=== PATIENT | female | born 1990 | race Hispanic/Latino ===

== ENCOUNTER 2017-07-04 06:21 | Emergency (ER) | payer OTHER ==
[2017-07-04 06:32] VITALS: TEMP 98.1
[2017-07-04] MEDS ORDERED: Sodium Chloride 0.9% 1,000 ML IV STA (07:16)
[2017-07-04 07:33] LABS: BASO # 0.1 K/uL (0.0-0.2); BASO % 1.1 % (0.0-2.0); EOS % 0.7 % (0.0-4.0); HEMATOCRIT 34.5 % (34.0-47.0); LYMPH # 1.3 K/uL (1.0-4.3); LYMPH % 22.1 % (20.0-40.0); MEAN CELL VOLUME 88.5 fl (81.0-99.0); MEAN CORPUSCULAR HEMOGLOBIN 30.2 pg (27.0-31.0); MEAN CORPUSCULAR HGB CONC 34.1 g/dL (33.0-37.0); MEAN PLATELET VOLUME 7.9 fl (7.2-11.7); MONO # 0.4 K/uL (0.0-0.8); MONO % 6.7 % (0.0-10.0); NEUT # 4.1 K/uL (1.8-7.0); NEUT % 69.4 % (50.0-75.0); RED CELL DISTRIBUTION WIDTH 12.5 % (11.5-14.5)
[2017-07-04] MEDS ORDERED: Iohexol 240 (50 ml) ONE (07:33)
[2017-07-04] MEDS ORDERED: Iohexol 240 (50 ml) PO ONE (07:35)
[2017-07-04 07:37] LABS: RBC URINE 1 /hpf (0-3); URINE BACTERIA OCC (<OCC); URINE BILIRUBIN NEGATIVE (NEGATIVE); URINE BLOOD NEGATIVE (NEGATIVE); URINE COLOR YELLOW (YELLOW); URINE GLUCOSE (UA) NEG (Normal); URINE KETONE NEGATIVE (NEGATIVE); URINE LEUKOCYTE ESTERASE NEG Leu/uL (Negative); URINE PROTEIN NEGATIVE (NEGATIVE); URINE UROBILINOGEN 0.2-1.0 mg/dL (0.2-1.0); WBC URINE 2 /hpf (0-5)
--- NOTE | 2017-07-04 07:47 | ED PDOC ---
HPI: Abdomen Time Seen by Provider: 07/04/17 07:09 Chief Complaint (Nursing): Abdominal Pain Chief Complaint (Provider): right lower abd pain History Per: Patient History/Exam Limitations: no limitations Onset/Duration Of Symptoms: Days (1), Gradual Current Symptoms Are (Timing): Still Present Location Of Pain/Discomfort: RLQ Quality Of Discomfort: Sharp Associated Symptoms: denies: Nausea, Vomiting, Diarrhea, Loss Of Appetite Exacerbating Factors: None Alleviating Factors: None Last Bowel Movement: Today Additional Complaint(s): 27yo female prior well c/o RLQ pain since yesterday. Pain is dull, today spreading to central abdomen and feels "bloated". Denies nausea, vomiting or diarrhea. Denies fever or urinary symptoms. Last menses just finished. . Past Medical History Reviewed: Historical Data, Nursing Documentation, Vital Signs Vital Signs: Last Vital Signs Temp 98.1 F 07/04/17 06:29 Pulse 78 07/04/17 11:25 Resp 17 07/04/17 11:25 BP 128/78 07/04/17 11:25 Pulse Ox 98 07/04/17 11:25 - Medical History PMH: No Chronic Diseases - Surgical History Surgical History: Endoscopy - Family History Family History: States: Unknown Family Hx - Social History Current smoker - smoking cessation education provided: No Alcohol: Occasional - Home Medications Home Medications: Ambulatory Orders Medication Instructions Recorded Ciprofloxacin [Cipro] 500 mg PO BID #14 tab 07/04/17 Magnesium Citrate [Citrate of Mag] 50 ml PO BID PRN #1 bottle 07/04/17 Naproxen [Naprosyn] 500 mg PO BID PRN #14 tablet 07/04/17 metroNIDAZOLE [Flagyl] 500 mg PO TID #21 tab 07/04/17 - Allergies Allergies/Adverse Reactions: Allergies Allergy/AdvReac Type Severity Reaction Status Date / Time No Known Allergies Allergy Verified 07/04/17 06:29 Review of Systems ROS Statement: Except As Marked, All Systems Reviewed And Found Negative Constitutional: Negative for: Fever, Chills ENT: Negative for: Throat Pain Cardiovascular: Negative for: Chest Pain, Palpitations Respiratory: Negative for: Cough, Hemoptysis Gastrointestinal: Positive for: Abdominal Pain. Negative for: Nausea, Vomiting , Diarrhea Genitourinary Female: Negative for: Dysuria, Frequency Musculoskeletal: Negative for: Neck Pain, Back Pain, Hand Pain Skin: Negative for: Rash, Lesions, Jaundice Neurological: Negative for: Weakness, Numbness Psych: Negative for: Suicidal ideation Physical Exam - Reviewed Nursing Documentation Reviewed: Yes Vital Signs Reviewed: Yes - Physical Exam Appears: Positive for: Well, Non-toxic, No Acute Distress Head Exam: Positive for: ATRAUMATIC, NORMAL INSPECTION, NORMOCEPHALIC Skin: Positive for: Normal Color, Warm, DRY Eye Exam: Positive for: EOMI, Normal appearance, PERRL ENT: Positive for: Normal ENT Inspection Neck: Positive for: Normal, Painless ROM Cardiovascular/Chest: Positive for: Regular Rate, Rhythm Respiratory: Positive for: CNT, Normal Breath Sounds Gastrointestinal/Abdominal: Positive for: Bowel Sounds, Soft, Tenderness (+RLQ tenderness). Negative for: Guarding, Rebound Back: Positive for: Normal Inspection Extremity: Positive for: Normal ROM Neurologic/Psych: Positive for: Alert, Oriented. Negative for: Motor/Sensory Deficits - Laboratory Results Result Diagrams: 07/04/17 07:25 07/04/17 07:25 Urine POC: Negative Urine dip results: Negative for: Leukocyte Esterase - ECG O2 Sat by Pulse Oximetry: 99 Medical Decision Making Medical Decision Making: workup for RLQ pain initiated, concern for ovarian pathology vs appendicitis vs other Analgesic, IVF and labs/CT ordered US pelvis Accession No. : [id number] Patient Name / ID : YOVANI SAMPSON / [id number] Exam Date : 07/04/2017 08:54:01 ( Approved ) Study Comment : Sex / Age : F / 27Y Creator : Parminder Johnson MD Dictator : Parminder Johnson MD Anodizing Line Operator : Business Center Manager : Parminder Johnson MD Approver2 : Report Date : 07/04/2017 10:59:50 My Comment : HISTORY: RLQ pain x2 days, r/o ovarian cyst/torsion COMPARISON: None available. TECHNIQUE: Transabdominal pelvic ultrasound was performed with longitudinal and transverse images submitted for interpretation. FINDINGS: UTERUS: Measures 7.8 x 4.1 x 2.5 cm. Normal in size and appearance. No fibroid or other mass lesion seen. ENDOMETRIUM: Measures 4.0 mm in diameter. Unremarkable. CERVIX: No cervical abnormality identified. RIGHT OVARY: Measures 2.9 x 1.1 x 2.4 cm. No solid mass. Normal flow. LEFT OVARY: Measures 2.0 x 1.1 x 1.7 cm. No solid mass. Normal flow. FREE FLUID: No significant free fluid noted. OTHER FINDINGS: None. IMPRESSION: Unremarkable pelvic ultrasound. Accession No. : [id number] Patient Name / ID : YOVANI SAMPSON / [id number] Exam Date : 07/04/2017 10:08:00 ( Approved ) Study Comment : Sex / Age : F / 27Y Creator : Parminder Johnson MD Dictator : Parminder Johnson MD Anodizing Line Operator : Business Center Manager : Parminder Johnson MD Approver2 : Report Date : 07/04/2017 10:55:55 My Comment : PROCEDURE: CT Abdomen and Pelvis with contrast HISTORY: RLQ pain x2 days COMPARISON: Transabdominal pelvic ultrasound exam 07/04/2017. TECHNIQUE: Following oral and intravenous contrast administration, a CT examination of the abdomen and pelvis performed from the domes of the diaphragms to the symphysis pubis with reformatted datasets provided not only axial but also sagittal and coronal series. Contrast dose: Omnipaque 300, 95 cc. Radiation dose: Total exam DLP = 531.47 mGy-cm. This CT exam was performed using one or more of the following dose reduction techniques: Automated exposure control, adjustment of the mA and/or kV according to patient size, and/or use of iterative reconstruction technique. FINDINGS: LOWER THORAX: Unremarkable. LIVER: Unremarkable. No gross lesion or ductal dilatation. GALLBLADDER AND BILE DUCTS: Unremarkable. PANCREAS: Unremarkable. No gross lesion or ductal dilatation. SPLEEN: Unremarkable. ADRENALS: Unremarkable. No mass. KIDNEYS AND URETERS: Unremarkable. No hydronephrosis. No solid mass. VASCULATURE: Unremarkable. No aortic aneurysm. BOWEL: There is thickening of the sigmoid colon wall without abscess. Local pericolic reaction is mild at the rectum is completely collapsed but is suspected to be involved as well. Infectious colitis is likely however inflammatory causes are not excluded. Ischemia and ischemia are unlikely but are not excluded either. No bowel obstruction is appreciated throughout. Small bowel is opacified but nonfocal presence of was collapsed and thereby limited in evaluation. APPENDIX: Normal appendix. PERITONEUM: No free fluid. No free air. LYMPH NODES: Unremarkable. No enlarged lymph nodes. BLADDER: Unremarkable. REPRODUCTIVE: Unremarkable. BONES: No acute fracture. OTHER FINDINGS: None. IMPRESSION: Findings suspicious for proctocolitis affecting the sigmoid colon and rectum moderately without free intrarenal gas or ascites/abscess please see differential diagnosis above. patient feeling better in ED. Results discussed and need for GI followup stressed. States has GI doc in [facility] had endoscopy 2 yrs ago. Rx cipro/flagyl, she reports hx constipation so will trial mag citrate Disposition - Clinical Impression Clinical Impression: Colitis - Patient ED Disposition Is Patient to be Admitted: No - Disposition Referrals: FAMILY PROVIDER,NO [Primary Care Provider] - Nimo REDD,MD Shea [Medical Doctor] - Disposition: Routine/Home Disposition Time: 09:30 Condition: STABLE Additional Instructions: See GI doctor as directed Return to ER for any new or worse symptoms Take medications as directed Prescriptions: Ciprofloxacin [Cipro] 500 mg PO BID #14 tab Magnesium Citrate [Citrate of Mag] 50 ml PO BID PRN #1 bottle PRN Reason: Constipation metroNIDAZOLE [Flagyl] 500 mg PO TID #21 tab Naproxen [Naprosyn] 500 mg PO BID PRN #14 tablet PRN Reason: Pain, Moderate (4-7) Instructions: Colitis (ED), Abdominal Pain (ED) Forms: [employer] ([place])
[2017-07-04 07:54] LABS: ALB/GLOB RATIO 1.1 (1.0-2.1); ALKALINE PHOSPHATASE 52 U/L (38-126); ALT/SGPT 51 U/L (9-52); AST/SGOT 29 U/L (14-36); BILIRUBIN,TOTAL 0.4 mg/dl (0.2-1.3); BLOOD UREA NITROGEN 13 mg/dl (7-17); CALCIUM 8.9 mg/dL (8.4-10.2); CARBON DIOXIDE 23 mmol/L (22-30); CHLORIDE 106 mmol/L (98-107); GFR AFRICAN-AMERICAN > 60; GLUCOSE,RANDOM 96 mg/dL (65-105); LIPASE 101 U/L (23-300); POTASSIUM 4.3 MMOL/L (3.6-5.0); SODIUM 139 mmol/l (132-148); TOTAL PROTEIN 7.6 G/DL (6.3-8.2)
[2017-07-04] MEDS ORDERED: Iohexol 300 100 ML IJ ONE (10:05)
--- NOTE | 2017-07-04 10:58 | CT ---
PROCEDURE: CT Abdomen and Pelvis with contrast HISTORY: RLQ pain x2 days COMPARISON: Transabdominal pelvic ultrasound exam 07/04/2017. TECHNIQUE: Following oral and intravenous contrast administration, a CT examination of the abdomen and pelvis performed from the domes of the diaphragms to the symphysis pubis with reformatted datasets provided not only axial but also sagittal and coronal series. Contrast dose: Omnipaque 300, 95 cc. Radiation dose: Total exam DLP = 531.47 mGy-cm. This CT exam was performed using one or more of the following dose reduction techniques: Automated exposure control, adjustment of the mA and/or kV according to patient size, and/or use of iterative reconstruction technique. FINDINGS: LOWER THORAX: Unremarkable. LIVER: Unremarkable. No gross lesion or ductal dilatation. GALLBLADDER AND BILE DUCTS: Unremarkable. PANCREAS: Unremarkable. No gross lesion or ductal dilatation. SPLEEN: Unremarkable. ADRENALS: Unremarkable. No mass. KIDNEYS AND URETERS: Unremarkable. No hydronephrosis. No solid mass. VASCULATURE: Unremarkable. No aortic aneurysm. BOWEL: There is thickening of the sigmoid colon wall without abscess. Local pericolic reaction is mild at the rectum is completely collapsed but is suspected to be involved as well. Infectious colitis is likely however inflammatory causes are not excluded. Ischemia and ischemia are unlikely but are not excluded either. No bowel obstruction is appreciated throughout. Small bowel is opacified but nonfocal presence of was collapsed and thereby limited in evaluation. APPENDIX: Normal appendix. PERITONEUM: No free fluid. No free air. LYMPH NODES: Unremarkable. No enlarged lymph nodes. BLADDER: Unremarkable. REPRODUCTIVE: Unremarkable. BONES: No acute fracture. OTHER FINDINGS: None. IMPRESSION: Findings suspicious for proctocolitis affecting the sigmoid colon and rectum moderately without free intrarenal gas or ascites/abscess please see differential diagnosis above.
--- NOTE | 2017-07-04 11:01 | US ---
HISTORY: RLQ pain x2 days, r/o ovarian cyst/torsion COMPARISON: None available. TECHNIQUE: Transabdominal pelvic ultrasound was performed with longitudinal and transverse images submitted for interpretation. FINDINGS: UTERUS: Measures 7.8 x 4.1 x 2.5 cm. Normal in size and appearance. No fibroid or other mass lesion seen. ENDOMETRIUM: Measures 4.0 mm in diameter. Unremarkable. CERVIX: No cervical abnormality identified. RIGHT OVARY: Measures 2.9 x 1.1 x 2.4 cm. No solid mass. Normal flow. LEFT OVARY: Measures 2.0 x 1.1 x 1.7 cm. No solid mass. Normal flow. FREE FLUID: No significant free fluid noted. OTHER FINDINGS: None. IMPRESSION: Unremarkable pelvic ultrasound.
[2017-07-04 11:27] VITALS: BP 128/78; PULSE 78; RESP 17
[2017-07-04 12:46] VITALS: O2SAT 99
== END 2017-07-04 11:27 | disposition home or self-care (01) ==
LOC: H.ER 06:21
DX: K52.9 Noninfective gastroenteritis and colitis, unspecified (principal); K59.00 Constipation, unspecified
CPT/HCPCS: 74177; 76856; 80053; 81003; 81025; 83690; 85025; 99282; J7040; Q9966; Q9967